=== PATIENT | female | born 1980 | race Caucasian/White ===

== ENCOUNTER 2017-03-17 19:39 | Emergency (ER) | payer BC ==
[~2017-03-17] VITALS: Ht 152.4 cm; Wt 94.0 kg
[2017-03-17 20:11] LABS: HEMATOCRIT 36.5 % (36.0-46.0); MCH 26.3 PG (29.0-34.0); MCHC 32.9 G/DL (30.0-36.0); MEAN PLAT.VOLUME 9.7 uM^3 (9.5-12.4); PLATELET COUNT 288 K/uL (156-360); RBC DIS.WIDTH-CV 14.3 % (11.8-14.6); RBC DIS.WIDTH-SD 41.5 % (39-53); RED BLOOD COUNT 4.56 M/uL (3.80-5.20); WHITE BLOOD COUNT 5.8 K/uL (4.1-10.2)
[2017-03-17 20:15] LABS: CHLORIDE 109 mEq/L (99-109); POTASSIUM 3.9 mEq/L (3.7-5.4); SODIUM 139 mEq/L (136-147)
[2017-03-17 20:17] LABS: GLUCOSE 84 mg/dL (70-99)
[2017-03-17 20:18] LABS: ANION GAP 7 MEQ/L (2-14)
[2017-03-17 20:19] LABS: TOTAL BILIRUBIN 0.4 mg/dL (0.0-1.0)
[2017-03-17 20:20] LABS: ALKALINE PHOSPHATASE 51 IU/L (3-129)
[2017-03-17 20:21] LABS: GFR ESTIMATE (CALCULATED) > 59 mL/min/
[2017-03-17 20:22] LABS: UREA NITROGEN (BUN) 11 mg/dL (9-23)
[2017-03-17 20:31] LABS: QUANTITATIVE HCG < 4.0 MIU/ML
[2017-03-17] MEDS ORDERED: COMPAZINE10 MG PO (21:27)
[2017-03-17] MEDS ORDERED: KADIAN10 MG PO (21:27)
[2017-03-17 21:31] LABS: CHLORIDE 110 mEq/L (99-109); POTASSIUM 3.7 mEq/L (3.7-5.4); SODIUM 137 mEq/L (136-147)
[2017-03-17 21:33] LABS: GLUCOSE 87 mg/dL (70-99)
[2017-03-17 21:34] LABS: ANION GAP 6 MEQ/L (2-14)
[2017-03-17 21:37] LABS: GFR ESTIMATE (CALCULATED) > 59 mL/min/; UREA NITROGEN (BUN) 11 mg/dL (9-23)
[2017-03-17 23:16] VITALS: BP 115/64
== END 2017-03-17 23:16 | disposition home or self-care (01) ==
LOC: EME 19:39
PROVIDERS: Emergency Medicine Emergency Medical Services
DX: R51 Headache (principal); G91.9 Hydrocephalus, unspecified; Z72.0 Tobacco use; Z87.820 Personal history of traumatic brain injury; Z85.820 Personal history of malignant melanoma of skin; Z98.890 Other specified postprocedural states; Z88.2 Allergy status to sulfonamides; Z88.0 Allergy status to penicillin; Z88.5 Allergy status to narcotic agent; Z88.8 Allergy status to other drugs, medicaments and biological substances
CPT/HCPCS: 80048 91; 80053; 81003; 84702; 85027; 99281; 99285; J0780; J2270